=== PATIENT | male | born 1980 | race African-American/Black ===

== ENCOUNTER 2016-10-25 14:34 | Inpatient (IN) | payer OTHER ==
[2016-10-25 15:10] VITALS: BMI 22.7
--- NOTE | 2016-10-25 17:06 | HP ---
Admission ROS S - HPI Chief Complaint: i want to go to rehab Allergies/Adverse Reactions: Allergies Allergy/AdvReac Type Severity Reaction Status Date / Time mirtazapine [From Remeron] AdvReac cloudy Verified 10/25/16 16:10 vision History of Present Illness: 36 years old male with long history of crystal meth dependence, has hiv anemia and aortic valve replacement 2012, contract lens is admitted to rehab Exam Limitations: No Limitations - Ebola screening Have you traveled outside of the country in the last 21 days: No Have you had contact with anyone from an Ebola affected area: No Have you been sick,other than usual withdrawal symptoms: No Do you have a fever: No - Review of Systems Constitutional: Weight Stable EENT: reports: Other (contact lens) Respiratory: reports: No Symptoms reported Cardiac: reports: No Symptoms Reported GI: reports: No Symptoms Reported : reports: No Symptoms Reported Musculoskeletal: reports: No Symptoms Reported Integumentary: reports: No Symptoms Reported Neuro: reports: No Symptoms reported Endocrine: reports: No Symptoms Reported Hematology: reports: No Symptoms Reported Psychiatric: reports: Judgement Intact, Orientated x3, Anxious Other Systems: Reviewed and Negative Patient History - Patient Medical History Hx Anemia: Yes Hx Asthma: No Hx Chronic Obstructive Pulmonary Disease (COPD): No Hx Cancer: No Hx Cardiac Disorders: Yes (2012 aortic valve) Hx Congestive Heart Failure: No Hx Hypertension: No Hx Hypercholesterolemia: No Hx Pacemaker: No HX Cerebrovascular Accident: No Hx Seizures: No Hx Dementia: No Hx Diabetes: No Hx Gastrointestinal Disorders: No Hx Liver Disease: No Hx Genitourinary Disorders: No Hx Sexually Transmitted Disorders: No Hx Renal Disease (ESRD): No Hx Thyroid Disease: No Hx Human Immunodeficiency Virus (HIV): Yes (2000) Hx Hepatitis C: No Hx Depression: No Hx Suicide Attempt: No Hx Bipolar Disorder: Yes Hx Schizophrenia: No - Patient Surgical History Past Surgical History: Yes Hx Neurologic Surgery: No Hx Cataract Extraction: No Hx Cardiac Surgery: Yes (2012) Hx Lung Surgery: No Hx Breast Surgery: No Hx Breast Biopsy: No Hx Abdominal Surgery: No Hx Appendectomy: No Hx Cholecystectomy: No Hx Genitourinary Surgery: No Hx Orthopedic Surgery: No Anesthesia Reaction: No - PPD History Previous Implant?: Yes Documented Results: Negative w/o proof Implanted On Prior [facility] Admission?: No PPD to be Administered?: Yes - Smoking Cessation Smoking history: Never smoked Have you smoked in the past 12 months: No Hx Chewing Tobacco Use: No Initiated information on smoking cessation: No - Substance & Tx. History Hx Alcohol Use: No Hx Substance Use: Yes Substance Use Type: Cocaine Hx Substance Use Treatment: Yes - Substances Abused Methamphetamine Route: Injection Frequency: 3-6 times per week Amount used: 1/4 gram Age of first use: 28 Date of Last Use: 10/21/16 Family Disease History - Family Disease History Family Disease History: Diabetes: Father, Mother, Heart Disease: Grandparent Admission Physical Exam [facility] - Vital Signs Vital Signs: Vital Signs - 24 hr 10/25/16 15:03 Temperature 97.5 F L Pulse Rate 84 Respiratory 18 Rate Blood Pressure 123/76 - Physical General Appearance: Yes: No Apparent Distress, Appropriately Dressed, Thin HEENTM: Yes: Hearing grossly Normal, Normal ENT Inspection, Normocephalic, Normal Voice Respiratory: Yes: Chest Non-Tender, Lungs Clear, Normal Breath Sounds, No Respiratory Distress, No Accessory Muscle Use Neck: Yes: Supple, Trachea in good position Breast: Yes: Breasts Symetrical Cardiology: Yes: Regular Rhythm, Regular Rate, S1, S2 Abdominal: Yes: Non Tender, Soft Genitourinary: Yes: Within Normal Limits Back: Yes: Normal Inspection Musculoskeletal: Yes: full range of Motion, Gait Steady Extremities: Yes: Normal Range of Motion, Non-Tender Neurological: Yes: Fully Oriented, Alert, Motor Strength 5/5, Normal Response Integumentary: Yes: Warm, Track [place] Lymphatic: Yes: Within Normal Limits - Diagnostic (1) Methamphetamine dependence Current Visit: Yes Status: Acute (2) HIV (human immunodeficiency virus infection) Current Visit: Yes Status: Acute (3) Anemia Current Visit: Yes Status: Chronic Qualifiers: Anemia type: iron deficiency Iron deficiency anemia type: inadequate dietary iron intake Qualified Code(s): D50.8 - Other iron deficiency anemias Comment: lab pending (4) S/P aortic valve replacement Current Visit: Yes Status: Resolved Comment: 2013 (5) Bipolar II disorder Current Visit: Yes Status: Suspected Cleared for Admission [facility] - Detox or Rehab [facility] Level of Care: Observation Bed Claeared for Rehab Admission: Yes [facility] Breath Alcohol Content Breath Alcohol Content: 0 Urine Drug Screen - Results Drug Screen Negative: No Urine Drug Screen Results: AMP-Amphetamines, MET-Methamphetamine
[2016-10-25] MEDS ORDERED: MAGNESIUM HYDROX 2400MG/30ML ORAL SUSPENSION 30 ML CUP PO PRN (17:11)
[2016-10-25] MEDS ORDERED: MENTHOL/PHENOL 1 EACH UD MM PRN (17:11)
[2016-10-25] MEDS ORDERED: P-EPHED 60MG/TRIPROLIDI 2.5MG TABLET PO PRN (17:11)
[2016-10-25] MEDS ORDERED: guaiFENesin/D-METHORPHAN HB 10 ML UNIT-DOSE CUPS PO PRN (17:11)
[2016-10-25] MEDS ORDERED: MAGNESIUM CITRATE 300 ML BOTTLE PO PRN (17:11)
[2016-10-25] MEDS ORDERED: MAG HYDROX/AL HYDROX/SIMETH 30 ML UNIT-DOSE CUP PO PRN (17:11)
[2016-10-25] MEDS ORDERED: LOPERAMIDE HCL 2 MG CAPSULE PO PRN (17:11)
[2016-10-25] MEDS ORDERED: IBUPROFEN 400 MG TABLET (FP) PO PRN (17:11)
[2016-10-25] MEDS ORDERED: TUBERCULIN PPD 5 TU/0.1ML VIAL ID ONE (19:31)
[2016-10-25] MEDS ORDERED: diphenhydrAMINE HCL 50 MG CAPSULE PO PRN (22:00)
[2016-10-25] MEDS ORDERED: PATIENT'S OWN MEDICATION (NON-FORMULARY) (Darunavir Ethanolate [Prezista -] 800 MG) PO SCH (22:00)
[2016-10-25] MEDS ORDERED: THIAMINE HCL 100 MG TABLET (FP) PO SCH (22:00)
[2016-10-25] MEDS: APIXABAN PO SCH (22:02)
[2016-10-25 22:51] LABS: URINE APPEARANCE CLEAR; URINE BILIRUBIN NEGATIVE (NEGATIVE); URINE BLOOD NEGATIVE (NEGATIVE); URINE COLOR YELLOW; URINE GLUCOSE (UA) NEGATIVE (NEGATIVE); URINE KETONE NEGATIVE (NEGATIVE); URINE LEUK ESTERASE NEGATIVE (NEGATIVE); URINE NITRITE NEGATIVE (NEGATIVE); URINE PROTEIN NEGATIVE (NEGATIVE); URINE UROBILINOGEN 2.0 E.U/dl E.U./dl (0.2-1.0)
[2016-10-25] MEDS ORDERED: traZODone HCL 100 MG TABLET (FP) PO SCH (23:00)
[2016-10-26] MEDS: ACETAMINOPHEN 325 MG TABLET (FP) PO PRN ×2 (05:41→11:20)
[2016-10-26 07:41] VITALS: BP 122/77; PULSE 90; TEMP 97.4
[2016-10-26] MEDS ORDERED: PT OWN MED DRAWER 7, Y5N ONE ×2 (09:24→17:45)
[2016-10-26] MEDS ORDERED: PRENATAL VITAMINS W/ FOLIC ACID TABLET (FP) PO SCH (10:00)
[2016-10-26 10:02] LABS: MCH 28.2 pg (25.7-33.7); MCHC 32.4 g/dl (32.0-35.9); MEAN PLT VOLUME 11.3 fl (7.5-11.1); PLATELET COUNT 201 K/MM3 (134-434); RDW 15.9 % (11.9-15.9); WHITE BLOOD COUNT 3.1 K/mm3 (4.0-10.0)
[2016-10-26] MEDS: APIXABAN PO SCH (10:22)
[2016-10-26 10:47] LABS: ALBUMIN 3.8 g/dl (3.4-5.0); ALK PHOS 119 U/L (45-117); ANION GAP 9 (8-16); BILIRUBIN,TOTAL 0.4 mg/dL (0.2-1.0); CALCIUM 8.8 mg/dL (8.5-10.1); CO2 25 mmol/L (21-32); CREATININE 1.2 mg/dL (0.7-1.3); GLUCOSE,RANDOM 117 mg/dL (74-106); SGOT/AST 46 U/L (15-37); SGPT/ALT 32 U/L (12-78); TOT PROT 8.7 g/dl (6.4-8.2)
[2016-10-26 10:55] LABS: INR 1.16 (0.82-1.09); PROTHROMBIN TIME (PATIENT) 12.8 SEC (9.98-11.88)
--- NOTE | 2016-10-26 11:15 | HP ---
Psychiatrist Admission - Data Date of interview: 10/26/16 Admission source: [facility] Identifying data: This is the first [facility] admission for this 36 years old single male, unemployed on public assistance, living in [facility]-subsidized housing seeking rehab treatment for crystal methamphetamine Medical History: Significant for HIV+ since 2000, Anemia,treatment for Pulmonary Emboli in September 2016 and S/P Aortic Valve replacement in 2012 Psychiatric History: Patient is a reliable historian. Reports that his first psychiatric contact was in 2010 when he was admitted to [facility] after his parents called 911 due to crystal meth intoxication and behavior issues associated with that. He was kept for 5 days, diagnosed with Bipolar Disorder and treated with Depakote. On discharge, he was referred to [facility] in [place], [place] for rehabiltation. Reports that he was completed that rehab in 45 days but did not continue to take Depakote while there. In December 2015, he was admitted to [facility] in [place] for depression for 7 days and was treated with Abilify 5 or 10 mg daily. He had 2 more subsequent admissions to [facility] [place] in Apr 2016 and most recently in Sep 2016( 10/10-). He was discharged on Abilify 10 mg po Hs, Abilify maintena 400 mg IM( last inj on 10/16/16) and Trazadone 100 mg po HS and referred to [facility] for aftrcare. He started using crystal meth and did not comply with discharge instruction. Physical/Sexual Abuse/Trauma History: Denies history of physical, sexual abuse as well as DV relationshio Additional Comment: No service or criminal history Vital Signs: Vital Signs - 24 hr 10/25/16 10/26/16 10/26/16 15:03 00:30 03:30 Temperature 97.5 F L Pulse Rate 84 Respiratory 18 18 18 Rate Blood Pressure 123/76 10/26/16 06:10 Temperature 97.4 F L Pulse Rate 90 Respiratory 18 Rate Blood Pressure 122/77 Allergies/Adverse Reactions: Allergies Allergy/AdvReac Type Severity Reaction Status Date / Time mirtazapine [From Remeron] AdvReac cloudy Verified 10/25/16 16:10 vision Date of last physical exam: 10/25/16 Concur with the findings of this exam: Yes - Substance Abuse/Tx History Hx Alcohol Use: No Hx Substance Use: Yes (began using meth @ 28, uses 1/4 g 3-6x wkly. Last used on 10/21/16) Substance Use Type: Prescribed Hx Substance Use Treatment: Yes ([facility] x 45 days in [place], [place] in 2010) - Admission Criteria Previous failed treatment: No Poor recovery environment: Yes Comorbidities: Yes Lacks judgement: Yes Mental Status Exam - Mental Status Exam Alert and Oriented to: Time, Place, Person Cognitive Function: Fair Patient Appearance: Disheveled Mood: Anxious Affect: Normal Range Patient Behavior: Cooperative Speech Pattern: Clear Voice Loudness: Normal Thought Process: Intact Thought Disorder: Not Present Hallucinations: Denies Suicidal Ideation: Denies Homicidal Ideation: Denies Insight/Judgement: Fair Sleep: Poorly Appetite: Fair Muscle strength/Tone: Normal Gait/Station: Normal Psychiatric Findings - Problem List ([place] 1, 2,3) (1) Methamphetamine dependence Current Visit: Yes Status: Acute (2) Mood disorder Current Visit: Yes Status: Acute (3) Bipolar II disorder Current Visit: Yes Status: Ruled-out (4) Substance induced mood disorder Current Visit: Yes Status: Acute (5) HIV (human immunodeficiency virus infection) Current Visit: Yes Status: Acute (6) Anemia Current Visit: Yes Status: Chronic Qualifiers: Anemia type: iron deficiency Iron deficiency anemia type: inadequate dietary iron intake Qualified Code(s): D50.8 - Other iron deficiency anemias Comment: lab pending (7) S/P aortic valve replacement Current Visit: Yes Status: Resolved Comment: 2012 - Initial Treatment Plan Initial Treatment Plan: 1) Continue Abilify 10 mg po HS & Trazadone 100 mg po HS. 2) He will be due for Abilify Maintena on Nov 13, 2016. However that medication is not part of [facility] Pharmacy formulary. Will attempt to get med via [employer]. 3) monitor progress
[2016-10-26] MEDS: hydrOXYzine PAMOATE 50 MG CAPSULE (FP) PO PRN ×2 (11:50→16:21)
--- NOTE | 2016-10-26 17:37 | EKG ---
Test Reason : Blood Pressure : / mmHG Vent. Rate : 082 BPM Atrial Rate : 082 BPM P-R Int : 180 ms QRS Dur : 102 ms QT Int : 376 ms P-R-T Axes : 058 -21 020 degrees QTc Int : 439 ms NORMAL SINUS RHYTHM NORMAL ECG NO PREVIOUS ECGS AVAILABLE Confirmed by AVIS FONTANA, ИРИНА ([id number]) on 10/26/2016 5:36:36 PM Referred By: Jaime Hay Confirmed By:ИРИНА ALBARRAN MD
--- NOTE | 2016-10-26 20:32 | PN ---
RUPESH Progress Note Note: received nurse call patient wants to be discharged early, willing to follow up as per counselor arranged recommend inform attending psychiatrist
[2016-10-26] MEDS ORDERED: PATIENT'S OWN MEDICATION (NON-FORMULARY) (Darunavir Ethanolate [Prezista -] 800 MG) PO SCH (22:00)
[2016-10-26] MEDS ORDERED: APIXABAN PO SCH (22:00)
== END 2016-10-26 18:08 | disposition left against medical advice (07) | DRG 770 ==
LOC: YASAS 14:34 → Y3W 17:51
PROVIDERS: ADMIT Psychiatry & Neurology Psychiatry; ATTEND Psychiatry & Neurology Psychiatry
PROC: HZ42ZZZ Group Counseling for Substance Abuse Treatment, Cognitive-Behavioral (ICD-10-PCS; principal; 2016-10-26)
DX: F15.20 Other stimulant dependence, uncomplicated (principal); F31.81 Bipolar II disorder; F19.24 Other psychoactive substance dependence with psychoactive substance-induced mood disorder; D50.8 Other iron deficiency anemias; Z95.2 Presence of prosthetic heart valve
CPT/HCPCS: 36415; 80053; 81003; 85027; 85610; 86593; 93005; 93010